=== PATIENT | female | born 1970 | race African-American/Black ===

== ENCOUNTER 2020-10-06 13:14 | Emergency (ER) | payer MEDICAID, OTHER ==
[~2020-10-06] VITALS: Ht 149.9 cm; Wt 52.0 kg
[2020-10-06 17:34] LABS: CLARITY URINE CLEAR (CLEAR); COLOR URINE YELLOW (YELLOW); KETONES URINE NEGATIVE (NEGATIVE); LEUKOCYTE ESTERASE URINE 2+ (NEGATIVE); NITRITE URINE NEGATIVE (NEGATIVE); OCCULT BLOOD URINE 2+ (NEGATIVE); PROTEIN URINE NEGATIVE (NEGATIVE); SPECIFIC GRAVITY URINE 1.008 (1.005-1.030); UROBILINOGEN URINE 0.2 E.U./dL (0.2-1.0)
[2020-10-06 18:27] VITALS: BP 118/88
== END 2020-10-06 18:29 | disposition home or self-care (01) ==
LOC: ER 13:14
DX: N76.4 Abscess of vulva (principal)
CPT/HCPCS: 81003; 81025; 99283

== ENCOUNTER 2020-11-22 13:44 | Emergency (ER) | payer OTHER ==
[~2020-11-22] VITALS: Ht 167.6 cm; Wt 68.0 kg
[2020-11-22] MEDS ORDERED: IBUPROFEN 600MG TABLET PO ONE (16:15)
[2020-11-22 16:24] LABS: CLARITY URINE CLEAR (CLEAR); COLOR URINE YELLOW (YELLOW); KETONES URINE NEGATIVE (NEGATIVE); LEUKOCYTE ESTERASE URINE 2+ (NEGATIVE); NITRITE URINE NEGATIVE (NEGATIVE); OCCULT BLOOD URINE TRACE (NEGATIVE); PH URINE 6.5 (4.5-8.0); PROTEIN URINE NEGATIVE (NEGATIVE); SPECIFIC GRAVITY URINE 1.007 (1.005-1.030); UROBILINOGEN URINE 0.2 E.U./dL (0.2-1.0)
[2020-11-22 17:50] VITALS: BP 134/81
== END 2020-11-22 17:51 | disposition home or self-care (01) ==
LOC: ER 13:44
DX: N75.0 Cyst of Bartholin's gland (principal); N39.0 Urinary tract infection, site not specified
CPT/HCPCS: 81003; 99283

== ENCOUNTER 2021-02-07 14:36 | Emergency (ER) | payer MEDICAID, OTHER ==
[~2021-02-07] VITALS: Ht 167.6 cm; Wt 57.0 kg
[2021-02-07] MEDS ORDERED: SULF-288 MT (17:02)
[2021-02-07] MEDS ORDERED: HYDR453.3 TP (17:06)
[2021-02-07] MEDS ORDERED: DOXY100C2 MT (17:57)
[2021-02-07 18:30] VITALS: BP 137/77
== END 2021-02-07 18:40 | disposition home or self-care (01) ==
LOC: ER 14:36
DX: Z48.00 Encounter for change or removal of nonsurgical wound dressing (principal); N75.0 Cyst of Bartholin's gland; I10 Essential (primary) hypertension; K62.89 Other specified diseases of anus and rectum; Z79.899 Other long term (current) drug therapy
CPT/HCPCS: 99283

== ENCOUNTER 2022-01-23 16:42 | Emergency (ER) | payer MEDICAID ==
[~2022-01-23] VITALS: Ht 152.4 cm; Wt 52.0 kg
[~2022-01-23 16:42] MED LIST: DOXY100C5 MT; HYDR453.3 TP; SULF-13 MT
[2022-01-23 21:52] LABS: EOSINOPHILS % 1.1 % (0.0-5.0); HEMATOCRIT. 40.2 % (36.0-48.0); HEMOGLOBIN. 13.4 g/dL (12.0-16.0); LYMPHOCYTES % 34.3 % (20.0-50.0); MEAN CORPUSCULAR HEMOGLOBIN 32.3 pg (28.0-32.0); MEAN CORPUSCULAR VOLUME 96.8 fL (81.0-99.0); MEAN PLATELET VOLUME 9.5 fl (7.4-10.4); MONOCYTES % 6.4 % (2.0-8.0); NEUTROPHILS % 57.2 % (40.0-76.0); PLATELET 289 x1000/uL (130-400); RED BLOOD CELL COUNT 4.16 mill/uL (4.2-5.4)
[2022-01-23 21:58] LABS: CHLORIDE 106 mEq/L (98-107)
[2022-01-23 22:09] LABS: B-HCG QUANTITATIVE < 1 mIU/mL (<3)
[2022-01-24 01:39] LABS: CLARITY URINE CLEAR (CLEAR); COLOR URINE YELLOW (YELLOW); KETONES URINE NEGATIVE (NEGATIVE); LEUKOCYTE ESTERASE URINE NEGATIVE (NEGATIVE); NITRITE URINE NEGATIVE (NEGATIVE); OCCULT BLOOD URINE NEGATIVE (NEGATIVE); PROTEIN URINE NEGATIVE (NEGATIVE); SPECIFIC GRAVITY URINE 1.005 (1.005-1.030); UROBILINOGEN URINE 0.2 E.U./dL (0.2-1.0)
[2022-01-24] MEDS ORDERED: NITR-87 MT (03:38)
[2022-01-24 03:52] VITALS: BP 128/90
== END 2022-01-24 03:53 | disposition home or self-care (01) ==
LOC: ER 16:42
DX: N39.0 Urinary tract infection, site not specified (principal)
CPT/HCPCS: 36415; 76830; 76856; 76857; 80053; 81003; 84702; 85025; 87077; 87186; 99284

== ENCOUNTER 2024-03-01 15:08 | Emergency (ER) | payer MEDICAID ==
[~2024-03-01] VITALS: Ht 152.4 cm; Wt 54.0 kg
[~2024-03-01 15:08] MED LIST changes: +NITR-87 MT
[2024-03-01 15:30] VITALS: O2SAT 100
[2024-03-01] MEDS ORDERED: OFLO5DRO4 RIGHT EAR (16:51)
[2024-03-01 17:17] VITALS: BP 132/82; PULSE 81; RESP 16; TEMP 98.9
[2024-03-02] MEDS ORDERED: TRIMO RIGHTEYE (17:39)
== END 2024-03-01 17:18 | disposition home or self-care (01) ==
LOC: ER 15:08
DX: T16.1XXA Foreign body in right ear, initial encounter (principal); I10 Essential (primary) hypertension; X58.XXXA Exposure to other specified factors, initial encounter; Y93.89 Activity, other specified; Y92.89 Other specified places as the place of occurrence of the external cause; Y99.8 Other external cause status
CPT/HCPCS: 99284

== ENCOUNTER 2024-03-02 15:20 | Emergency (ER) | payer MEDICAID ==
[~2024-03-02] VITALS: Ht 149.9 cm; Wt 52.0 kg
[~2024-03-02 15:20] MED LIST changes: +OFLO5DRO4 RIGHT EAR
[2024-03-02 15:57] VITALS: O2SAT 100
[2024-03-02] MEDS ORDERED: TRIMO RIGHTEYE (17:39)
[2024-03-02 17:54] VITALS: BP 127/61; PULSE 84; RESP 18; TEMP 98.2
== END 2024-03-02 17:57 | disposition home or self-care (01) ==
LOC: ER 15:20
DX: H57.89 Other specified disorders of eye and adnexa (principal); Z79.899 Other long term (current) drug therapy
CPT/HCPCS: 99281; 99283